=== PATIENT | male | born 1985 | race African-American/Black ===

== ENCOUNTER 2019-03-20 07:44 | Emergency (ER) | payer MEDICAID, OTHER ==
[~2019-03-20] VITALS: Ht 185.4 cm; Wt 88.9 kg
[2019-03-20 08:27] LABS: Basophils # (auto) 0 uL; Basophils % (auto) 1.1 % (0.0-2.0); Eosinophils # (auto) 0.1 uL; Eosinophils % (auto) 3.9 % (0.0-7.0); Hematocrit 43.1 % (41.0-53.0); Hemoglobin 14.3 g/dL (13.5-17.5); Lymphocytes # (auto) 1.1 uL; Mean Corpuscular Hgb Conc. 33.2 g/dL (32.0-36.0); Mean Corpuscular Volume 81.5 fL (80.0-100.0); Monocytes # (auto) 0.2 uL; Monocytes % (auto) 7.5 % (0.0-12.0); Neutrophils # (auto) 1.3 uL; Neutrophils % (auto) 46.5 % (37.0-80.0); Nucleated Red Blood Cells % 0.2 %; Platelet Count (auto) 262 10^3/uL (140-450); Red Blood Cells 5.29 10^6/uL (4.5-5.90); Red Cell Distribution Width 14.3 % (11.8-14.3); White Blood Cell 2.8 10^3/uL (4.4-10.8)
[2019-03-20 08:41] LABS: Chloride 110 mmol/L (98-107); Potassium 3.9 mmol/L (3.5-5.1); Sodium 141 mmol/L (136-145)
[2019-03-20 08:44] LABS: Albumin 4.1 g/dL (3.4-5.0); Anion Gap 5 (5-15); Blood Urea Nitrogen 11 mg/dL (7-18); Calcium 9.3 mg/dL (8.5-10.1); Carbon Dioxide 26 mmol/L (21-32); Glucose 109 mg/dL (74-106)
[2019-03-20] MEDS ORDERED: LORazepam 0.5 MG TAB PO ONE (08:45)
[2019-03-20] MEDS ORDERED: ASPirin 81 mg TAB PO ONE (08:45)
[2019-03-20 08:49] LABS: Alanine Aminotransferase 23 U/L (16-61); Alkaline Phosphatase 58 U/L (45-117); Aspartate Aminotransferase 13 U/L (15-37); BUN/Creatinine Ratio 10.1; Bilirubin, Total 1.7 mg/dL (0.2-1.0); GFR African American 101 mL/min; GFR Non-African American 84 mL/min
[2019-03-20 10:39] VITALS: BP 138/76
== END 2019-03-20 10:45 | disposition home or self-care (01) ==
LOC: ER 07:49
DX: R07.89 Other chest pain (principal); F41.9 Anxiety disorder, unspecified; F17.210 Nicotine dependence, cigarettes, uncomplicated; F12.10 Cannabis abuse, uncomplicated
CPT/HCPCS: 36415; 80053; 84484; 85025; 93005

== ENCOUNTER 2019-05-04 21:10 | Emergency (ER) | payer MEDICAID ==
[~2019-05-04] VITALS: Ht 185.4 cm; Wt 86.2 kg
[2019-05-04 21:20] VITALS: BP 124/80
[2019-05-04 22:02] LABS: Basophils # (auto) 0.1 uL; Eosinophils # (auto) 0.2 uL; Platelet Count (auto) 280 10^3/uL (140-450)
[2019-05-04 22:04] LABS: Basophils % (auto) 1.1 % (0.0-2.0); Eosinophils % (auto) 3.2 % (0.0-7.0); Hematocrit 43.4 % (41.0-53.0); Hemoglobin 14.5 g/dL (13.5-17.5); Lymphocytes # (auto) 1.6 uL; Lymphocytes % (auto) 30.2 % (10.0-50.0); Mean Corpuscular Hgb Conc. 33.3 g/dL (32.0-36.0); Monocytes # (auto) 0.4 uL; Monocytes % (auto) 7.4 % (0.0-12.0); Neutrophils # (auto) 3.1 uL; Neutrophils % (auto) 58.1 % (37.0-80.0); Red Blood Cells 5.37 10^6/uL (4.5-5.90); Red Cell Distribution Width 13.7 % (11.8-14.3); White Blood Cell 5.2 10^3/uL (4.4-10.8)
[2019-05-04 22:19] LABS: Albumin 4.2 g/dL (3.4-5.0); Anion Gap 8 (5-15); Blood Urea Nitrogen 9 mg/dL (7-18); Calcium 9.5 mg/dL (8.5-10.1); Carbon Dioxide 28 mmol/L (21-32); Chloride 106 mmol/L (98-107); Glucose 91 mg/dL (74-106); Magnesium 2.6 mg/dL (1.6-2.6); Potassium 3.9 mmol/L (3.5-5.1); Sodium 142 mmol/L (136-145)
[2019-05-04 22:25] LABS: Alanine Aminotransferase 23 U/L (16-61); Alkaline Phosphatase 65 U/L (45-117); Aspartate Aminotransferase 11 U/L (15-37); BUN/Creatinine Ratio 6.9; Bilirubin, Total 0.8 mg/dL (0.2-1.0); GFR African American 82 mL/min; GFR Non-African American 68 mL/min; Total Protein 7.5 g/dL (6.4-8.2)
[2019-05-04 23:12] LABS: Urine Bacteria FEW /hpf (None Seen); Urine Blood TRACE /uL (Negative); Urine Mucus FEW (None Seen); Urine Specific Gravity 1.022 (1.001-1.035); Urine WBC 758 /hpf (0 - 3)
== END 2019-05-05 02:00 | disposition left against medical advice (07) ==
LOC: ER 21:10
DX: R07.9 Chest pain, unspecified (principal); Z53.21 Procedure and treatment not carried out due to patient leaving prior to being seen by health care provider
CPT/HCPCS: 36415; 71045; 80053; 81001; 83735; 84484; 85025; 93005

== ENCOUNTER 2020-02-24 22:40 | Emergency (ER) | payer MEDICAID ==
[~2020-02-24] VITALS: Ht 185.4 cm; Wt 83.0 kg
[2020-02-24 23:28] VITALS: BP 131/78
== END 2020-02-25 00:36 | disposition home or self-care (01) ==
LOC: ER 22:42
DX: J02.9 Acute pharyngitis, unspecified (principal); R53.1 Weakness; M79.10 Myalgia, unspecified site

== ENCOUNTER 2024-03-19 01:05 | Emergency (ER) | payer MEDICAID, OTHER ==
[~2024-03-19] VITALS: Ht 185.4 cm; Wt 101.4 kg
[2024-03-19 01:15] VITALS: BP 147/92; PULSE 87; RESP 19; O2SAT 99
[2024-03-19 03:15] LABS: Basophils # (auto) 0.1 10 ^3/uL (0-0.2); Eosinophils # (auto) 0.1 10 ^3/uL (0-0.8); Hemoglobin 15.7 g/dL (13.5-17.5); Lymphocytes # (auto) 1.3 10 ^3/uL (0.4-5.4); Monocytes # (auto) 0.5 10 ^3/uL (0-1.3); Neutrophils # (auto) 8.5 10 ^3/uL (1.6-8.6)
[2024-03-19 03:17] LABS: Basophils % (auto) 0.7 % (0.0-2.0); Eosinophils % (auto) 0.9 % (0.0-7.0); Lymphocytes % (auto) 12.7 % (10.0-50.0); Mean Corpuscular Hemoglobin 26.7 pg (28.0-32.0); Mean Corpuscular Hgb Conc. 32.8 g/dL (32.0-36.0); Mean Corpuscular Volume 81.6 fL (80.0-100.0); Neutrophils % (auto) 80.7 % (37.0-80.0); Nucleated Red Blood Cells % 0.1 %; Red Blood Cells 5.88 10^6/uL (4.5-5.90); White Blood Cell 10.5 10^3/uL (4.4-10.8)
[2024-03-19 03:32] LABS: Alanine Aminotransferase 22 U/L (7-40); Alkaline Phosphatase 65 U/L (46-116); Anion Gap 6 (5-15); Aspartate Aminotransferase 16 U/L (13-40); BUN/Creatinine Ratio 6.9 (10.0-20.0); Blood Urea Nitrogen 10 mg/dL (9-23); Carbon Dioxide 27 mmol/L (20-30); Chloride 106 mmol/L (98-107); Glucose 112 mg/dL (74-106); Lipase 41 U/L (12-53); Potassium 4.3 mmol/L (3.5-5.1); Sodium 139 mmol/L (136-145)
[2024-03-19 03:33] LABS: Bilirubin, Total 0.6 mg/dL (0.2-1.0); Total Protein 7.8 g/dL (5.7-8.2)
[2024-03-19 04:08] LABS: Urine Bacteria None Seen /hpf (None Seen)
[2024-03-19 04:24] LABS: Urine Blood 2+ /uL (Negative); Urine Clarity Clear (Clear); Urine Color Light-Yellow (Yellow); Urine Protein, UAD 1+ (Negative); Urine Specific Gravity 1.018 (1.001-1.035); Urine Urobilinogen Normal (Negative); Urine WBC 6 /hpf (0 - 3); Urine pH 6.5 (5.0-9.0)
== END 2024-03-19 05:02 | disposition left against medical advice (07) ==
LOC: ER 01:05
DX: R10.9 Unspecified abdominal pain (principal); Z53.21 Procedure and treatment not carried out due to patient leaving prior to being seen by health care provider
CPT/HCPCS: 36415; 80053; 81001; 83690; 85025

== ENCOUNTER 2024-03-19 10:49 | Inpatient (IN) | payer OTHER ==
[~2024-03-19] VITALS: Ht 193 cm; Wt 78.2 kg
[2024-03-19 11:49] LABS: Urine Bacteria None Seen /hpf (None Seen)
[2024-03-19 12:08] LABS: Urine Blood 2+ /uL (Negative); Urine Budding Yeast OCCASIONAL /hpf (None Seen); Urine Clarity Clear (Clear); Urine Color Light-Yellow (Yellow); Urine Mucus FEW (None Seen); Urine Protein, UAD 1+ (Negative); Urine Specific Gravity 1.018 (1.001-1.035); Urine Urobilinogen Normal (Negative); Urine WBC 10 /hpf (0 - 3); Urine pH 6.5 (5.0-9.0)
[2024-03-19 13:49] LABS: Basophils # (auto) 0.1 10 ^3/uL (0-0.2); Eosinophils # (auto) 0.1 10 ^3/uL (0-0.8); Eosinophils % (auto) 0.6 % (0.0-7.0); Hematocrit 48.3 % (41.0-53.0); Monocytes # (auto) 0.4 10 ^3/uL (0-1.3); Neutrophils # (auto) 7.2 10 ^3/uL (1.6-8.6)
[2024-03-19 13:51] LABS: Basophils % (auto) 0.7 % (0.0-2.0); Mean Corpuscular Hemoglobin 26.8 pg (28.0-32.0); Mean Corpuscular Volume 81.3 fL (80.0-100.0); Neutrophils % (auto) 82.7 % (37.0-80.0); Nucleated Red Blood Cells % 0.1 %; Red Blood Cells 5.95 10^6/uL (4.5-5.90); Red Cell Distribution Width 13.9 % (11.8-14.3); White Blood Cell 8.7 10^3/uL (4.4-10.8)
[2024-03-19 13:55] LABS: Chloride 107 mmol/L (98-107); Potassium 4.2 mmol/L (3.5-5.1); Sodium 139 mmol/L (136-145)
[2024-03-19 13:56] LABS: Anion Gap 6 (5-15); Carbon Dioxide 26 mmol/L (20-30)
[2024-03-19 13:57] LABS: Calcium 11.1 mg/dL (8.7-10.4)
[2024-03-19 14:02] LABS: BUN/Creatinine Ratio 7.8 (10.0-20.0); Blood Urea Nitrogen 10 mg/dL (9-23); Glucose 115 mg/dL (74-106); Magnesium 2.1 mg/dL (1.6-2.6)
[2024-03-19] MEDS ORDERED: ACETAMINOPHEN 325 MG TAB PO PRN (17:45)
[2024-03-19 19:35] VITALS: PULSE 81; RESP 20; O2SAT 98
[2024-03-19] MEDS: FLUCONAZOLE 200MG/100ML 100 ML IV ONE (19:45)
[2024-03-19] MEDS: METOCLOPRAMIDE HCL 5MG/ml INJ 2ml VIAL IV ONE (19:46)
[2024-03-19] MEDS: SODIUM CHLORIDE 0.9% 1,000 ML IVB ONE (19:46)
[2024-03-19] MEDS: KETOROLAC TROMETH 30 MG/ML 1ML VIAL IV ONE (19:46)
[2024-03-19] MEDS: TAMSULOSIN HYDROCHLORIDE 0.4 MG CAP PO ONE (19:46)
[2024-03-19] MEDS: TAMSULOSIN HYDROCHLORIDE 0.4 MG CAP PO SCH (19:47)
[2024-03-19] MEDS: HYDROcodone-ACET 5/325MG TAB PO PRN (19:47)
[2024-03-19] MEDS: SODIUM CHLORIDE 0.9% 1,000 ML IV SCH (20:00)
[2024-03-19 22:00] VITALS: BP 132/82; PULSE 69; RESP 20; TEMP 98; O2SAT 95
[2024-03-19 23:25] VITALS: BP 132/82; PULSE 69; RESP 20; TEMP 98.2; O2SAT 95
[2024-03-20] MEDS: KETOROLAC TROMETH 30 MG/ML 1ML VIAL IV PRN (01:15)
[2024-03-20 05:00] VITALS: BP 124/74; PULSE 87; RESP 17; TEMP 98.6; O2SAT 97
[2024-03-20 05:49] LABS: Basophils # (auto) 0 10 ^3/uL (0-0.2); Basophils % (auto) 0.5 % (0.0-2.0); Eosinophils # (auto) 0 10 ^3/uL (0-0.8); Eosinophils % (auto) 0.4 % (0.0-7.0); Hematocrit 44.2 % (41.0-53.0); Hemoglobin 14.4 g/dL (13.5-17.5); Lymphocytes # (auto) 0.9 10 ^3/uL (0.4-5.4); Mean Corpuscular Hemoglobin 26.4 pg (28.0-32.0); Mean Corpuscular Hgb Conc. 32.6 g/dL (32.0-36.0); Mean Corpuscular Volume 80.8 fL (80.0-100.0); Monocytes # (auto) 0.3 10 ^3/uL (0-1.3); Monocytes % (auto) 4.7 % (0.0-12.0); Neutrophils # (auto) 5.4 10 ^3/uL (1.6-8.6); Neutrophils % (auto) 81.4 % (37.0-80.0); Nucleated Red Blood Cells % 0.1 %; Red Blood Cells 5.47 10^6/uL (4.5-5.90); White Blood Cell 6.6 10^3/uL (4.4-10.8)
[2024-03-20 06:02] LABS: Alanine Aminotransferase 17 U/L (7-40); Albumin 4.4 g/dL (3.2-4.8); Alkaline Phosphatase 56 U/L (46-116); Anion Gap 6 (5-15); Aspartate Aminotransferase 13 U/L (13-40); BUN/Creatinine Ratio 8.2 (10.0-20.0); Blood Urea Nitrogen 13 mg/dL (9-23); Calcium 10.2 mg/dL (8.7-10.4); Carbon Dioxide 26 mmol/L (20-30); Chloride 108 mmol/L (98-107); Glucose 126 mg/dL (74-106); Potassium 4.2 mmol/L (3.5-5.1); Sodium 140 mmol/L (136-145)
[2024-03-20 06:03] LABS: Bilirubin, Total 1.4 mg/dL (0.2-1.0); Total Protein 6.8 g/dL (5.7-8.2)
[2024-03-20] MEDS ORDERED: ONDANSETRON HCL 4 MG/2 ML VIAL IV PRN (08:30)
[2024-03-20] MEDS: cefTRIAXone 1GM/50ML D5W 50 ML IV SCH (09:10)
[2024-03-20] MEDS: ENOXAPARIN SOD 40 MG/0.4 ML SYRINGE SC SCH (09:17)
[2024-03-20] MEDS: FLUCONAZOLE 200MG/100ML 100 ML IV SCH (10:00)
[2024-03-20 13:00] VITALS: BP 147/88; PULSE 70; RESP 18; TEMP 98.3; O2SAT 95
[2024-03-20] MEDS: hydroCHLOROthiazide 25 MG TAB PO ONE (14:44)
[2024-03-20 22:06] VITALS: BP 133/82; PULSE 76; RESP 18; TEMP 98; O2SAT 96
[2024-03-21] VITALS (10 sets, daily range): BP systolic 133–151; BP diastolic 75–94; PULSE 66–79; RESP 16–19; TEMP 97.6–98.3; O2SAT 94–98
[2024-03-21 07:29] LABS: Basophils # (auto) 0 10 ^3/uL (0-0.2); Eosinophils # (auto) 0.2 10 ^3/uL (0-0.8); Hemoglobin 14.5 g/dL (13.5-17.5); Lymphocytes # (auto) 1.5 10 ^3/uL (0.4-5.4); Monocytes # (auto) 0.5 10 ^3/uL (0-1.3); Neutrophils # (auto) 4.1 10 ^3/uL (1.6-8.6); Nucleated Red Blood Cells % 0.1 %; Red Cell Distribution Width 14.1 % (11.8-14.3); White Blood Cell 6.3 10^3/uL (4.4-10.8)
[2024-03-21 07:31] LABS: Basophils % (auto) 0.7 % (0.0-2.0); Eosinophils % (auto) 2.7 % (0.0-7.0); Hematocrit 44.2 % (41.0-53.0); Lymphocytes % (auto) 23.7 % (10.0-50.0); Mean Corpuscular Hemoglobin 26.5 pg (28.0-32.0); Mean Corpuscular Hgb Conc. 32.7 g/dL (32.0-36.0); Mean Corpuscular Volume 80.9 fL (80.0-100.0); Monocytes % (auto) 8.5 % (0.0-12.0); Neutrophils % (auto) 64.4 % (37.0-80.0); Red Blood Cells 5.47 10^6/uL (4.5-5.90)
[2024-03-21 07:40] LABS: Alanine Aminotransferase 14 U/L (7-40); Albumin 4.3 g/dL (3.2-4.8); Alkaline Phosphatase 53 U/L (46-116); Anion Gap 8 (5-15); Aspartate Aminotransferase 17 U/L (13-40); BUN/Creatinine Ratio 7.4 (10.0-20.0); Blood Urea Nitrogen 11 mg/dL (9-23); Calcium 10.1 mg/dL (8.5-10.1); Carbon Dioxide 26 mmol/L (20-30); Chloride 105 mmol/L (98-107); Glucose 86 mg/dL (74-106); Potassium 3.9 mmol/L (3.5-5.1); Sodium 139 mmol/L (136-145)
[2024-03-21 07:41] LABS: Bilirubin, Total 1.5 mg/dL (0.2-1.0); Total Protein 6.8 g/dL (5.7-8.2)
[2024-03-21 08:07] LABS: INR 1.04 (0.9-1.15); Partial Thromboplastin Time 29.2 SEC (24.5-34.5); Prothrombin Time 10.9 sec (9.3-11.8)
[2024-03-21] MEDS: hydroCHLOROthiazide 25 MG TAB PO SCH (09:42)
[2024-03-21] MEDS: LIDOCAINE 2%HCL (LOCAL ANESTH.) INJ 20ML MDV ONE (13:26)
[2024-03-21] MEDS: MIDAZOLAM HCL 2MG/2ML 2ml VIAL (1mg/ml) ONE (13:26)
[2024-03-21] MEDS: fentaNYL CITRATE 100 MCG/2 ML VL ONE (13:26)
[2024-03-21] MEDS: LIDOCAINE 1% HCL (LOCAL ANESTH.) INJ 20ML MDV ONE (13:29)
[2024-03-21] MEDS: LIDOCAINE 2%HCL (LOCAL ANESTH.) INJ 10ml MDV ONE ×2 (15:43→16:23)
[2024-03-21] MEDS: cefTRIAXone 1GM/50ML D5W 50 ML IV ONE (16:08)
[2024-03-22 08:10] VITALS: PULSE 74; RESP 18; O2SAT 95
[2024-03-22 09:00] VITALS: BP 130/67; PULSE 74; RESP 18; TEMP 98.3; O2SAT 95
[2024-03-22] MEDS ORDERED: TAMS0.4C36 PO (11:36)
[2024-03-22] MEDS ORDERED: CIPR500T4 PO (11:36)
[2024-03-22 13:00] VITALS: BP 101/78; PULSE 77; RESP 16; TEMP 98.4; O2SAT 95
[2024-03-22 13:05] LABS: Eosinophils # (auto) 0.1 10 ^3/uL (0-0.8); Lymphocytes # (auto) 1.2 10 ^3/uL (0.4-5.4); Monocytes # (auto) 0.4 10 ^3/uL (0-1.3); Neutrophils # (auto) 2.4 10 ^3/uL (1.6-8.6); Nucleated Red Blood Cells % 0.1 %; White Blood Cell 4.1 10^3/uL (4.4-10.8)
[2024-03-22 13:07] LABS: Basophils # (auto) 0.1 10 ^3/uL (0-0.2); Basophils % (auto) 1.3 % (0.0-2.0); Eosinophils % (auto) 3.5 % (0.0-7.0); Hemoglobin 15.3 g/dL (13.5-17.5); Lymphocytes % (auto) 28.9 % (10.0-50.0); Mean Corpuscular Hemoglobin 26.5 pg (28.0-32.0); Mean Corpuscular Hgb Conc. 32.5 g/dL (32.0-36.0); Mean Corpuscular Volume 81.4 fL (80.0-100.0); Monocytes % (auto) 9.1 % (0.0-12.0); Neutrophils % (auto) 57.2 % (37.0-80.0); Red Blood Cells 5.77 10^6/uL (4.5-5.90); Red Cell Distribution Width 14.1 % (11.8-14.3)
[2024-03-22 13:31] LABS: Alanine Aminotransferase 18 U/L (7-40); Alkaline Phosphatase 57 U/L (46-116); Calcium 10.2 mg/dL (8.5-10.1); Carbon Dioxide 28 mmol/L (20-30); Chloride 104 mmol/L (98-107)
[2024-03-22 13:32] LABS: Albumin 4.4 g/dL (3.2-4.8); Anion Gap 6 (5-15); Aspartate Aminotransferase 15 U/L (13-40); BUN/Creatinine Ratio 10.2 (10.0-20.0); Bilirubin, Total 1.1 mg/dL (0.2-1.0); Blood Urea Nitrogen 13 mg/dL (9-23); Glucose 89 mg/dL (74-106); Sodium 138 mmol/L (136-145); Total Protein 6.9 g/dL (5.7-8.2)
[2024-03-22 13:52] VITALS: BP 101/78; PULSE 77; RESP 16; TEMP 98.4; O2SAT 95
[2024-03-22] MEDS ORDERED: HYDR-4902 PO (14:08)
[2024-03-22] MEDS ORDERED: TRAM50TA2 PO (15:09)
== END 2024-03-22 16:06 | disposition home or self-care (01) | DRG 463 ==
LOC: ER 10:49 → OVERFLOW 17:48 → EAST 21:42
PROVIDERS: ADMIT Internal Medicine; ATTEND Emergency Medicine
PROC: 0T9430Z Drainage of Left Kidney Pelvis with Drainage Device, Percutaneous Approach (ICD-10-PCS; principal; 2024-03-21)
DX: N13.6 Pyonephrosis (principal); N17.9 Acute kidney failure, unspecified; M54.50 Low back pain, unspecified; E11.22 Type 2 diabetes mellitus with diabetic chronic kidney disease; N18.9 Chronic kidney disease, unspecified; Z87.442 Personal history of urinary calculi
CPT/HCPCS: 36415; 50432; 74176; 74425; 76775; 76942; 80048; 80053; 81001; 83735; 85025; 85610; 85730; 99152; G0378; J1450; J1885; J2001; J2250

== ENCOUNTER 2024-04-15 07:59 | Emergency (ER) | payer OTHER ==
[~2024-04-15] VITALS: Ht 185.4 cm; Wt 97.8 kg
[~2024-04-15 07:59] MED LIST: CIPR500T4 PO; TAMS0.4C36 PO; TRAM50TA2 PO
[2024-04-15 08:31] VITALS: BP 140/95; PULSE 81; RESP 16; TEMP 98.2; O2SAT 96
== END 2024-04-15 09:16 | disposition home or self-care (01) ==
LOC: ER 07:59
DX: T83.032D Leakage of nephrostomy catheter, subsequent encounter (principal); F17.210 Nicotine dependence, cigarettes, uncomplicated; F15.90 Other stimulant use, unspecified, uncomplicated; Z79.899 Other long term (current) drug therapy; Z87.442 Personal history of urinary calculi; Y92.89 Other specified places as the place of occurrence of the external cause

== ENCOUNTER 2024-04-20 19:37 | Emergency (ER) | payer OTHER ==
[~2024-04-20] VITALS: Ht 185.4 cm; Wt 95.4 kg
[2024-04-20 19:50] VITALS: BP 117/73; PULSE 95; RESP 17; TEMP 99.8; O2SAT 96
[2024-04-20 20:16] LABS: Urine Bacteria FEW /hpf (None Seen); Urine Blood 1+ /uL (Negative); Urine Clarity Turbid (Clear); Urine Color Yellow (Yellow); Urine Mucus FEW (None Seen); Urine Protein, UAD 1+ (Negative); Urine Urobilinogen 4 mg/dL (Negative); Urine WBC 347 /hpf (0 - 3)
[2024-04-20 21:10] LABS: Basophils # (auto) 0 10 ^3/uL (0-0.2); Basophils % (auto) 0.6 % (0.0-2.0); Eosinophils # (auto) 0.1 10 ^3/uL (0-0.8); Eosinophils % (auto) 0.8 % (0.0-7.0); Hematocrit 42.1 % (41.0-53.0); Lymphocytes # (auto) 1.4 10 ^3/uL (0.4-5.4); Lymphocytes % (auto) 16.4 % (10.0-50.0); Mean Corpuscular Hemoglobin 26.4 pg (28.0-32.0); Mean Corpuscular Hgb Conc. 33.4 g/dL (32.0-36.0); Mean Corpuscular Volume 79.3 fL (80.0-100.0); Monocytes # (auto) 0.7 10 ^3/uL (0-1.3); Monocytes % (auto) 8.8 % (0.0-12.0); Neutrophils # (auto) 6.1 10 ^3/uL (1.6-8.6); Neutrophils % (auto) 73.4 % (37.0-80.0); Nucleated Red Blood Cells % 0.1 %; Red Blood Cells 5.31 10^6/uL (4.5-5.90); Red Cell Distribution Width 13.7 % (11.8-14.3); White Blood Cell 8.3 10^3/uL (4.4-10.8)
[2024-04-20 21:27] LABS: Alanine Aminotransferase 25 U/L (7-40); Albumin 4.7 g/dL (3.2-4.8); Alkaline Phosphatase 75 U/L (46-116); Anion Gap 4 (5-15); Aspartate Aminotransferase 14 U/L (13-40); BUN/Creatinine Ratio 6.9 (10.0-20.0); Blood Urea Nitrogen 9 mg/dL (9-23); Calcium 10.6 mg/dL (8.5-10.1); Carbon Dioxide 28 mmol/L (20-30); Chloride 103 mmol/L (98-107); Glucose 98 mg/dL (74-106); Potassium 4.4 mmol/L (3.5-5.1); Sodium 135 mmol/L (136-145)
[2024-04-20 21:28] LABS: Bilirubin, Total 1.1 mg/dL (0.2-1.0); Total Protein 7.5 g/dL (5.7-8.2)
[2024-04-20] MEDS ORDERED: BACDST PO (22:07)
== END 2024-04-20 22:29 | disposition home or self-care (01) ==
LOC: ER 19:37
DX: N39.0 Urinary tract infection, site not specified (principal); J06.9 Acute upper respiratory infection, unspecified; R51.9 Headache, unspecified; F17.210 Nicotine dependence, cigarettes, uncomplicated; F12.10 Cannabis abuse, uncomplicated; Z87.442 Personal history of urinary calculi
CPT/HCPCS: 36415; 71045; 80053; 81001; 83605; 85025

== ENCOUNTER 2024-05-23 10:34 | Inpatient (IN) | payer MEDICAID, OTHER ==
[~2024-05-23] VITALS: Ht 185.4 cm; Wt 90.0 kg
[~2024-05-23 10:34] MED LIST changes: +BACDST PO; +LEVO750T40 PO
[2024-05-23 11:35] LABS: Basophils # (auto) 0.1 10 ^3/uL (0-0.2); Basophils % (auto) 0.5 % (0.0-2.0); Eosinophils # (auto) 0 10 ^3/uL (0-0.8); Hematocrit 40.3 % (41.0-53.0); Lymphocytes # (auto) 0.6 10 ^3/uL (0.4-5.4); Lymphocytes % (auto) 4.1 % (10.0-50.0); Mean Corpuscular Hemoglobin 25.8 pg (28.0-32.0); Mean Corpuscular Hgb Conc. 32.2 g/dL (32.0-36.0); Mean Corpuscular Volume 80.2 fL (80.0-100.0); Monocytes # (auto) 0.9 10 ^3/uL (0-1.3); Monocytes % (auto) 5.4 % (0.0-12.0); Neutrophils # (auto) 14.4 10 ^3/uL (1.6-8.6); Red Blood Cells 5.03 10^6/uL (4.5-5.90); Red Cell Distribution Width 14.1 % (11.8-14.3)
[2024-05-23 11:41] LABS: Urine Bacteria FEW /hpf (None Seen); Urine Blood 2+ /uL (Negative); Urine Clarity Turbid (Clear); Urine Color Light-Orange (Yellow); Urine Protein, UAD 2+ (Negative); Urine Specific Gravity 1.013 (1.001-1.035); Urine Urobilinogen 6 mg/dL (Negative); Urine WBC 315 /hpf (0 - 3); Urine WBC Clumps PRESENT /hpf (None Seen)
[2024-05-23 11:57] LABS: Alanine Aminotransferase 29 U/L (7-40); Albumin 4.5 g/dL (3.2-4.8); Alkaline Phosphatase 88 U/L (46-116); Anion Gap 11 (5-15); Aspartate Aminotransferase 24 U/L (13-40); Blood Urea Nitrogen 11 mg/dL (9-23); Calcium 10.5 mg/dL (8.5-10.1); Carbon Dioxide 20 mmol/L (20-30); Chloride 102 mmol/L (98-107); Glucose 147 mg/dL (74-106); Potassium 3.7 mmol/L (3.5-5.1); Sodium 133 mmol/L (136-145); Total Protein 7.6 g/dL (5.7-8.2)
[2024-05-23] MEDS: SODIUM CHLORIDE 0.9% 1,000 ML IVB ONE (12:33)
[2024-05-23] MEDS: cefTRIAXone 1GM/50ML D5W 50 ML IV ONE (12:33)
[2024-05-23] MEDS: SODIUM CHLORIDE 0.9% 1,000 ML IV ONE (12:33)
[2024-05-23] MEDS: ONDANSETRON HCL 4 MG/2 ML VIAL IV ONE (12:34)
[2024-05-23] MEDS: MORPHINE SULFATE 4 MG/ML SYR/VIAL IV ONE (12:34)
[2024-05-23] MEDS ORDERED: DOCUSATE SOD 100 MG CAP PO PRN (14:30)
[2024-05-23] MEDS ORDERED: HYDROcodone-ACET 5/325MG TAB PO PRN (14:30)
[2024-05-23] MEDS ORDERED: NITROGLYCERIN 0.4 MG SL TAB SL PRN (14:30)
[2024-05-23] MEDS ORDERED: ONDANSETRON HCL 4 MG/2 ML VIAL IV PRN (14:30)
[2024-05-23] MEDS ORDERED: MORPHINE SULFATE INJ 2 MG/ml SYRG IV PRN (14:30)
[2024-05-23] MEDS ORDERED: IPRATROPIUM BROM 0.5 MG/2.5ML INH SOL NEB PRN (15:00)
[2024-05-23] MEDS: SODIUM CHLORIDE 0.9% 1,000 ML IV SCH (15:00)
[2024-05-23] MEDS ORDERED: ALBUTEROL SULF 2.5 MG/0.5ML(0.5%) NEB SOLN NEB PRN (15:00)
[2024-05-23] MEDS: ACETAMINOPHEN 325 MG TAB PO ONE (15:02)
[2024-05-23 16:00] VITALS: PULSE 85; RESP 16; O2SAT 96
[2024-05-23 16:10] VITALS: BP 102/60; PULSE 75; RESP 18; TEMP 99.6; O2SAT 98
[2024-05-23] MEDS: METOCLOPRAMIDE HCL 5MG/ml INJ 2ml VIAL IV ONE (18:46)
[2024-05-23] MEDS: MORPHINE SULFATE INJ 2 MG/ml SYRG IV PRN (18:47)
[2024-05-23 19:02] VITALS: O2SAT 100
[2024-05-23 20:29] LABS: Amphetamine Screen, Urine Neg (NEGATIVE); Barbiturate Scree,Urine Neg (NEGATIVE); Benzodiazephine Screen, Urine Neg (NEGATIVE); Cannabinoid Screen, Urine Pos (NEGATIVE); Cocaine Screen, Urine Neg (NEGATIVE); Opiate Scree,Urine Neg (NEGATIVE); Phencyclidine Screen, Urine Neg (NEGATIVE)
[2024-05-23 21:01] VITALS: BP 116/71; PULSE 111; RESP 20; O2SAT 96
[2024-05-23 21:06] VITALS: TEMP 103
[2024-05-23] MEDS: ACETAMINOPHEN 325 MG TAB PO PRN (21:06)
[2024-05-24] MEDS ORDERED: PANTOPRAZOLE 40 MG TAB PO SCH (06:00)
[2024-05-24] MEDS ORDERED: cefTRIAXone 1GM/50ML D5W 50 ML IV SCH (09:00)
== END 2024-05-23 21:00 | disposition left against medical advice (07) | DRG 720 ==
LOC: ER 10:34 → TELE 14:42
PROVIDERS: ADMIT Nurse Practitioner Family; ATTEND Nurse Practitioner Family
DX: A41.9 Sepsis, unspecified organism (principal); N17.0 Acute kidney failure with tubular necrosis; E87.1 Hypo-osmolality and hyponatremia; N20.1 Calculus of ureter; Z53.29 Procedure and treatment not carried out because of patient's decision for other reasons; N39.0 Urinary tract infection, site not specified; F17.210 Nicotine dependence, cigarettes, uncomplicated; Z83.3 Family history of diabetes mellitus; Z87.442 Personal history of urinary calculi
CPT/HCPCS: 36415; 74176; 80053; 80307; 81001; 83605; 83690; 85025; 87040; 87086; 87088; 87186; G0378; J2405

== ENCOUNTER 2025-05-13 03:39 | Emergency (ER) | payer MEDICAID ==
[~2025-05-13] VITALS: Ht 185.4 cm; Wt 100.9 kg
[~2025-05-13 03:39] MED LIST changes: -TAMS0.4C36 PO; +TAMS0.4C39 PO
--- NOTE | 2025-05-13 03:49 | ED.PDOC ---
Back pain HPI Time Seen by MD: 03:49 Primary Care Provider: UNKNOWN Reviewed Notes: Nurses Notes, Medications, Allergies Allergies: Coded Allergies: NO KNOWN ALLERGIES (Unverified , 03/20/19) Home Meds Active Scripts Levofloxacin Hemihydrate (LEVOFLOXACIN) 750 Mg Tab, 750 MG PO DAILY for 7 Days, #7 TAB Prov:TARA VÁZQUEZ RESIDENT 05/07/24 Sulfamethoxazole W/Trimethopri (Bactrim Ds Tablet) 1 Tab Tb, 1 TAB PO BID for 7 Days, #14 TAB Prov:KENNEDI DIEGO PAC 04/20/24 Tamsulosin Hcl (Tamsulosin Hcl) 0.4 Mg Cap, 0.4 MG PO DAILY for 30 Days, CAP Prov:TARA VÁZQUEZ RESIDENT 03/22/24 Ciprofloxacin Hcl (Ciprofloxacin Hcl) 500 Mg Tab, 500 MG PO BID for 7 Days, #14 TAB Prov:TARA VÁZQUEZ RESIDENT 03/22/24 Reported Medications Tramadol Hcl (Tramadol Hcl) 50 Mg Tab, 50 MG PO BID for 5 Days, #10 TAB 03/22/24 Information Source: Patient Past Medical History PAST MEDICAL HISTORY: Kidney Stones Family History Family History: Reviewed,noncontributory to illness Social History Smoker: Cigarettes, Less Than 1 Pack/Day Alcohol: Denies ETOH Use Drugs: Marijuana Lives In: Home Constitutional: denies: chills, diaphoresis, fatigue, fever, malaise, sweats, weakness, others EENTM: denies: blurred vision, double vision, ear bleeding, ear discharge, ear drainage, ear pain, ear ringing, eye pain, eye redness, hearing loss, mouth pain, mouth swelling, nasal discharge, nose bleeding, nose congestion, nose pain, photophobia, tearing, throat pain, throat swelling, voice changes, others Respiratory: denies: cough, hemoptysis, orthopnea, SOB at rest, shortness of breath, SOB with excertion, stridor, wheezing, others Cardiovascular: denies: chest pain, dizzy spells, diaphoresis, Dyspnea on exertion, edema, irregular heart beat, left arm pain, lightheadedness, palpitations, PND, syncope, others Gastrointestinal: denies: abdomen distended, abdominal pain, blood streaked bowels, constipated, diarrhea, dysphagia, difficulty swallowing, hematemesis, melena, nausea, poor appetite, poor fluid intake, rectal bleeding, rectal pain, vomiting, others Genitourinary: denies: burning, dysuria, flank pain, frequency, hematuria, incontinence, penile discharge, penile sore, pain, testicle pain, testicle swelling, urgency, others Neurological: denies: dizziness, fainting, headache, left sided numbness, left sided weakness, numbness, paresthesia, pre-existing deficit, right sided numbness, right sided weakness, seizure, speech problems, tingling, tremors, weakness, others Musculoskeletal: reports: others (left shoulder pain ); denies: back pain, gout, joint pain, joint swelling, muscle pain, muscle stiffness, neck pain Integumetry: denies: bruises, change in color, change in hair/nails, dryness, laceration, lesions, lumps, rash, wounds, others Allergic/Immunocompromised: denies: Difficulty Healing, Frequent Infections, Hives, Itching, others Hematologic/Lymphatic: denies: anemia, blood clots, easy bleeding, easy bruising, swollen glands, others Endocrine: denies: excessive hunger, excessive sweating, excessive thirst, excessive urination, flushing, intolerance to cold, intolerance to heat, unexplained weight gain, unexplained weight loss, others Psychiatric: denies: anxiety, bipolar disorder, depression, hopeless, panic disorder, schizophrenia, sleepless, suicidal, others Physical Exam General Appearance: No Apparent Distress, Normal HEENT: Pharynx Normal Neck: Full Range of Motion, Non-Tender Respiratory: Lungs Clear, No Respiratory Distress, Normal Breath Sounds Cardiovascular: No Murmur, Normal Peripheral Pulses, Regular Rate/Rhythm Breast Exam: Deferred Gastrointestinal: Non Tender, Soft Genitalia: Deferred Pelvic: Deferred Rectal: Deferred Extremities: Normal capillary refill, Normal inspection, Normal range of motion, Non-tender Musculoskeletal : Location: Left Extremity Location: Shoulder (Moderate tenderness palpated over shoulder girdle, strength sensory intact decreased range of motion due to pain positive radial pulse noted gross external visible trauma) Apperance: Normal Neurologic: Alert, sprinkler installer II-XII nml as Tested, No Motor Deficits, Normal Affect, Normal Mood, No Sensory Deficits Cerebellar Function: Normal Reflexes: Normal Skin: Dry, Normal Color, Warm Lymphatic: No Adenopathy Was a procedure done? Was a procedure done?: No Back Pain Differential Dx Differential Diagnosis: Fracture, Musculoskeletal Pain X-Ray, Labs, Meds, VS Vital Signs Date Time Temp Pulse Resp B/P (MAP) Pulse Ox O2 Delivery O2 Flow Rate FiO2 05/13/25 03:39 98.8 72 18 138/88 (105) 98 98.8 X-Ray, Labs, Meds, VS Comment LEFT SHOULDER X-RAY IMPRESSION: 1. No acute fracture of the left shoulder. 2. Question of mild acromioclavicular separation versus artifactual appearance. Correlate with focal tenderness. PATIENT WITH MODERATE TENDERNESS ON PALPATION OVER THE AC ASPECT. LIKELY MILD AC SEPARATION BASED ON PHYSICAL EXAM AND X-RAY FINDINGS. PATIENT PLACED IN SLING, GIVEN PERCOCET 10 MG P.O. REPORTS IMPROVEMENT IN PAIN AND FUNCTION REQUESTING DISCHARGE AT THIS TIME. ADVISED TO USE THE SLING FOR COMFORT ADVISED TO FOLLOW UP WITH HIS PCP IN 2 TO 3 DAYS CONSIDER REFERRAL TO ORTHO OR AN MRI IF SYMPTOMS PERSIST. SCRIPT MUSCLE RELAXER AND ANTI-INFLAMMATORY MEDICATION ADVISED TO TAKE MEDICATION PRESCRIBED SIDE EFFECTS DISCUSSED. ER RETURN PRECAUTIONS GIVEN PATIENT INDICATES UNDERSTANDING AND AGREES WITH DISCHARGE PLAN OF CARE. Time of 1ST Reevaluation: 03:49 Reevaluation 1ST: Unchanged Time of 2ND Reevaluation: 04:44 Reevaluation 2ND: Improved Patient Education/Counseling: Diagnosis, Treatment, Prognosis, Need For Follow Up Family Education/Counseling: Diagnosis, Treatment, Prognosis, Need For Follow Up Departure 1 Departure Time of Disposition: 04:44 Impression: Primary Impression: Acromioclavicular separation, type 1 Qualified Codes: S43.102A - Unspecified dislocation of left acromioclavicular joint, initial encounter Disposition: HOME / SELF CARE / HOMELESS Condition: Stable e-Prescriptions Methylprednisolone (Medrol Dosepak) 4 Mg Jose Daniel 4 MG PO UD for 6 Days, #21 TAB UAD Prov: JOSE ENRIQUE MONTEROP 05/13/25 Tizanidine Hydrochloride (Tizanidine Hcl) 4 Mg Tab 4 MG PO BID PRN for 6 Days, #12 TAB Prov: JOSE ENRIQUE MONTERO 05/13/25 Discharged With: Significant Other Critical Care Note Critical Care Time?: No Stability Stability form required: No JOSE ENRIQUE MONTERO May 13, 2025 03:49
--- NOTE | 2025-05-13 04:26 | DVH ---
EXAM: XY L SHOULDER 2+ VIEW XRAY HISTORY: left shoulder injury COMPARISON: None TECHNIQUE: AP and scapular Y views of the left shoulder were performed. FINDINGS: No acute fracture is identified about the left shoulder. There may be mild acromioclavicular separati on versus artifactual appearance. No significant loss of subacromial space. IMPRESSION: 1. No acute fracture of the left shoulder. 2. Question of mild acromioclavicular separation versus artifactual appearance. Correlate with focal tenderness.
[2025-05-13] MEDS ORDERED: METH4PAK PO (04:46)
[2025-05-13] MEDS ORDERED: TIZA-142 PO (04:46)
[2025-05-13] MEDS: OXYCODONE W/ ACETAMINOPHEN 5/325MG TABLET PO ONE (04:59)
[2025-05-13 05:05] VITALS: BP 132/78; PULSE 70; RESP 19; TEMP 98.5
[2025-05-13 05:06] VITALS: O2SAT 98
== END 2025-05-13 05:07 | disposition home or self-care (01) ==
LOC: ER 03:39
DX: S43.102A Unspecified dislocation of left acromioclavicular joint, initial encounter (principal); F17.210 Nicotine dependence, cigarettes, uncomplicated; X58.XXXA Exposure to other specified factors, initial encounter; Y93.89 Activity, other specified; Y92.89 Other specified places as the place of occurrence of the external cause; Y99.8 Other external cause status
CPT/HCPCS: 73030